=== PATIENT | male | born 2000 | race Caucasian/White ===

== ENCOUNTER 2020-03-24 13:57 | Emergency (ER) | payer OTHER, SELFPAY ==
[2020-03-24 14:22] VITALS: BP 146/79; PULSE 68; RESP 16; TEMP 36.6; O2SAT 100; BMI 39.4
--- NOTE | 2020-03-24 17:29 | ED_ITS ---
HPI - Abdominal Pain General Chief Complaint: Abdominal Pain Stated Complaint: stomach pain,headache,tired Time Seen by Provider: 03/24/20 17:29 Source: patient Mode of arrival: ambulatory Limitations: no limitations History of Present Illness HPI narrative: patient complaining of diffuse abdominal pain for last 1 month also complaining of headache and been feeling tired, patient denies any vomiting. Does complain of nausea and 2 or 3 loose bowels per day patient does not seem to be in any distress multiple complaints as such Related Data Previous Rx's Medication Instructions Recorded dicyclomine 20 mg PO QID PRN #20 tab 03/24/20 Allergies Allergy/AdvReac Type Severity Reaction Status Date / Time No Known Allergies Allergy Unverified 01/03/20 19:53 [No Known Allergies*] Review of Systems Review of Systems REVIEW OF SYSTEMS: Pertinent positives and negatives are stated above in the history. GEN: no fevers, chills, fatigue HEENT: no nasal congestion, sore throat, ear pain NEURO: no dizziness, focal weakness PULM: no cough, shortness of breath CV: no chest pain, palpitations, LE edema ABD: no ,, vomiting, : no dysuria, urgency, frequency SKIN: no rash ROS otherwise negative x 10 Physical Exam Vital Signs: Vital Signs: Last Vital Signs Temp 98.5 F 03/24/20 18:26 Pulse 60 03/24/20 18:26 Resp 18 03/24/20 18:26 BP 129/80 03/24/20 18:26 Pulse Ox 98 03/24/20 18:26 Body Mass Index 39.4 Appearance: Alert. Oriented X3. No acute distress. Eyes: Pupils equal, round and reactive to light. ENT: Pharynx normal. oral mucosa moist Neck: Normal inspection. Neck supple. CVS: Normal heart rate and rhythm. Pulses normal. Respiratory: No respiratory distress. Breath sounds normal. Abdomen: Soft and nontender. bowel sounds normal no mass palpable no rebound tenderness or guarding Skin: Skin warm and dry. Normal skin color. Normal skin turgor. Extremities: No lower extremity edema. Good range of movement Neuro: Oriented X 3. No motor deficit. No sensory deficit. MDM - Abdominal Pain Differential Diagnosis Differential diagnosis: Likely abdominal pain Lab Data Attestation: I reviewed the patient's lab results. Labs: Lab Results 03/24/20 Range/Units 17:41 Coronavirus (PCR) NEGATIVE (Negative) Influenza Type A (PCR) NEGATIVE (Negative) Influenza Type B (PCR) NEGATIVE (Negative) RSV RNA Qual (PCR) NEGATIVE (Negative) Discharge Plan Discharge Clinical Impression: Abdominal pain Qualifiers: Abdominal location: generalized Qualified Code(s): R10.84 - Generalized abdominal pain Patient Disposition: Home, Self-Care Instructions: Abdominal Pain (ED) Additional Instructions: drink plenty of fluids take medication for abdominal cramping as advised follow with PCP will call you with your COVID results Prescriptions: New dicyclomine 20 mg tablet 20 mg PO QID PRN (Reason: abdominal pain) Qty: 20 RF: 0 Interventions: ED Discharge Assessment Last Done: 03/24/20 18:40 Discharge Date/Time: 03/24/20 18:42 FORMERLY [facility] Past Medical History Medical History Asthma Social History Social History Alcohol intake: never Smoked in Last 30 Days: No Use of substances other than those prescribed or required for medical reasons: No Advance Directives: No Advance Directives Information Provided: No
[2020-03-24] MEDS: Dicyclomine HCl 10 MG CAPSULE 20 MG PO (17:39)
[2020-03-24 18:26] VITALS: BP 129/80; PULSE 60; RESP 18; TEMP 36.9; O2SAT 98
[2020-03-24 18:26] LABS: Influenza A PCR NEGATIVE (Negative); Influenza B PCR NEGATIVE (Negative); Resp Syncy Virus RNA Qual PCR NEGATIVE (Negative); SARS COV2 PCR INHOUSE NEGATIVE (Negative)
== END 2020-03-24 18:42 | disposition home or self-care (01) ==
PROVIDERS: Emergency Provider Internal Medicine
DX: R10.84 Generalized abdominal pain (principal); Z20.828 Contact with and (suspected) exposure to other viral communicable diseases; R51.9 Headache, unspecified; R53.83 Other fatigue
CPT/HCPCS: 0241U; 99283; 99284

== ENCOUNTER 2020-04-10 15:26 | Outpatient (REF) | payer OTHER, SELFPAY | END 2020-04-10 15:27 | disposition home or self-care (01) | LOC: HO.LAB 15:26 | PROVIDERS: Visit Provider Internal Medicine | DX: Z20.828 Contact with and (suspected) exposure to other viral communicable diseases (principal) | CPT/HCPCS: C9803; U0003 ==

== ENCOUNTER 2020-04-23 13:00 | Outpatient (REF) | payer OTHER, SELFPAY | END 2020-04-23 13:01 | disposition home or self-care (01) | LOC: HO.LAB 13:00 | PROVIDERS: PCP Internal Medicine; Visit Provider Internal Medicine | DX: Z20.828 Contact with and (suspected) exposure to other viral communicable diseases (principal) | CPT/HCPCS: 36415; C9803; U0003 ==

== ENCOUNTER 2020-08-09 10:44 | Emergency (ER) | payer OTHER, SELFPAY ==
--- NOTE | ~2020-08-09 | XR_ITS ---
EXAMINATION: XR CHEST CLINICAL INFORMATION: Shortness of breath/chest pain. COMPARISON: None TECHNIQUE: Frontal view of the chest was obtained. FINDINGS: No significant abnormality is noted involving the heart, lungs, mediastinum, bony thorax or soft tissues. XR/XR chest 1V IMPRESSION: No acute cardiopulmonary process.
[2020-08-09 11:02] VITALS: BP 135/83; PULSE 82; RESP 16; TEMP 36.7; O2SAT 97; BMI 38.7
--- NOTE | 2020-08-09 11:21 | PC.NURSE ---
patient a&ox3, vss, lungs clear, pt states his chest feels heavy from his asthma, pt states this occurs every spring and it is nothing new and at times he has to go to the ed for treatment when his at home meds dont work, provider at bedside, will continue to monitor.
--- NOTE | 2020-08-09 11:23 | ECG_ITS ---
Test Reason : SOB/CP Blood Pressure : / mmHG Vent. Rate : 072 BPM Atrial Rate : 072 BPM P-R Int : 158 ms QRS Dur : 092 ms QT Int : 360 ms P-R-T Axes : 059 072 044 degrees QTc Int : 394 ms Normal sinus rhythm with sinus arrhythmia Normal ECG No previous ECGs available Referred By: Patti Lockwood Electronically Signed By:RYLEE MARIE MD
--- NOTE | 2020-08-09 11:29 | ED_ITS ---
HPI - Asthma General Chief Complaint: Asthma Stated Complaint: ashtma Time Seen by Provider: 08/09/20 11:11 Source: patient Mode of arrival: ambulatory History of Present Illness HPI Narrative: 19-year-old male with a past medical history of asthma presenting to the ED complaining of asthma exacerbation x2 days. Reports chest tightness, wheezing, in pain on inspiration. Reports using inhalers at home with little relief. Admits to similar symptoms in the past, annually, exacerbated with fallen. Denies fever, chills, LE edema, recent travel, cigarette smoking, history of blood clots complaint: asthma attack and shortness of breath Related Data Previous Rx's Medication Instructions Recorded dicyclomine 20 mg PO QID PRN #20 tab 03/24/20 Allergies Allergy/AdvReac Type Severity Reaction Status Date / Time No Known Allergies Allergy Verified 08/09/20 11:08 [No Known Allergies*] Review of Systems Review of Systems: Constitutional: No Fever, No Chills Cardiovascular: + Chest tightness, + SOB, No Edema, No Palpitations Respiratory: + Cough, No Sputum, + Wheezing Gastrointestinal: No Nausea, No Vomiting, No Diarrhea, No Constipation, No Abdominal pain Musculoskeletal: No joint pain, No Myalgias, No Joint Swelling Skin: No Skin Lesions, No rash Neuro: No Weakness, No Numbness, No Headache Yes all other systems are reviewed and are negative FOR[facility]LY [facility] Past Medical History Attestation statement: The following information was validated with the patient. Medical History Asthma Social History Social History Alcohol intake: current Alcohol intake frequency: holidays/special occasions only Smoked in Last 30 Days: No Use of substances other than those prescribed or required for medical reasons: No Advance Directives: No Advance Directives Information Provided: No Physical Exam Vital Signs: Vital Signs: Last Vital Signs Temp 98.1 F 08/09/20 11:02 Pulse 78 08/09/20 12:17 Resp 16 08/09/20 11:02 BP 135/83 08/09/20 11:02 Pulse Ox 97 08/09/20 11:02 Body Mass Index 38.7 Const: General: cooperative and healthy appearing Orientation/consciousness: patient oriented x3 Limitations: no limitations HENMT: Head: Yes normal to inspection Ears: hearing grossly normal bilaterally General nose exam: Normal external nose present Face and sinus: Yes normal facial exam Eyes: General: appearance normal, both eyes and all related structures EOM: EOMs intact bilaterally Neck: Neck: Yes normal visual inspection and Yes no meningeal signs Resp: Effort & Inspection: normal respiratory effort Auscultation: clear to auscultation bilaterally, no rales, no rhonchi and no wheezes Cardio: Rate: regular rate Heart sounds: S1 normal heart sound present and S2 normal heart sound present Skin: Rashes: no rashes Wounds: no wounds Neuro: General: patient oriented x3 and no meningeal signs Gait exam (Neuro): Normal gait present Extrem: General: Yes normal to inspection, Yes no pedal edema and Yes no calf tenderness Course Course Course Narrative: -labs unremarkable including troponin and D-dimer negative -COVID-19/influenza/RSV negative -CXR unremarkable >> results discussed with patient including worrisome signs and symptoms and s trict return precautions. He verbalized understanding feel safe for discharge home to follow-up with PCP MDM - Asthma MDM Narrative Medical decision making narrative: 19-year-old male with a past medical history of asthma presenting to the ED complaining of asthma exacerbation x2 days. Reports chest tightness, wheezing, & pain on inspiration. On exam VSS, NAD/well appearing, lungs CTA, no LE edema or calf tenderness. Concern for mild asthma exacerbation vs PE vs viral syndrome/COVID-19. Lower concern for pneumonia/ACS Plan: EKG, labs, CXR, DuoNeb, reassess Medical Records Attestation: I reviewed the patient's medical records. Lab Data Attestation: I reviewed the patient's lab results. Result diagrams: 08/09/20 11:50 08/09/20 11:50 Labs: Lab Results 08/09/20 08/09/20 08/09/20 Range/Units 11:50 11:50 11:50 WBC 8.9 (4.8-10.8) X10*3/uL RBC 5.43 (4.60-5.80) X10*6/uL Hgb 15.6 (14.0-18.0) g/dl Hct 46.3 (42-52) % MCV 85.3 (80-98) fL MCH 28.7 (27.0-33.0) pg MCHC 33.7 (31.0-36.0) g/dl RDW 13.2 (11.0-16.0) % Plt Count 225 (160-400) X10*3/uL MPV 12.2 (9.4-12.4) fL Immature Gran % (Auto) 0.1 (0.0-0.4) % Neut % (Auto) 72.0 (45-73) % Lymph % (Auto) 18.5 L (20-40) % [place] % (Auto) 4.8 (2-11) % Eos % (Auto) 4.2 H (0-4) % Baso % (Auto) 0.4 (0-2) % Lymph # (Auto) 1.7 (1.2-4.9) X10*3/uL [place] # (Auto) 0.4 (0.1-1.2) X10*3/uL Eos # (Auto) 0.4 (0.0-0.4) X10*3/uL Baso # (Auto) 0.0 (0.0-0.2) X10*3/uL Abs Immat Gran (auto) 0.01 (0.00-0.03) X10*3/uL Absolute Neuts (auto) 6.4 (2.0-8.3) X10*3/uL Absolute Nucleated RBC 0.000 (0.0-0.012) X10*3/uL Nucleated RBC % (auto) 0.0 (0.0-0.2) /100WBC PT (10.8-13.0) SEC INR (0.9-1.1) APTT (24.1-38.0) SEC D-Dimer Cancelled Sodium 141 (135-145) mmol/L Potassium 4.4 (3.3-5.1) mmol/L Chloride 103 (96-108) mmol/L Carbon Dioxide 28 (22-29) mmol/L Anion Gap 14 (12-20) BUN 14 (9-16) mg/dL Creatinine 0.83 (0.5-1.4) mg/dL Estim Creat Clear Calc 168.2 Estimated GFR > 60 Random Glucose 91 (60-115) mg/dL Calcium 10.0 (8.4-10.2) mg/dL Magnesium 2.2 (1.6-2.6) mg/dL Troponin I High Sens (<3.5-35.0) ng/L Coronavirus (PCR) (Negative) Influenza Type A (PCR) (Negative) Influenza Type B (PCR) (Negative) RSV RNA Qual (PCR) (Negative) 08/09/20 08/09/20 08/09/20 Range/Units 11:50 11:50 11:50 WBC (4.8-10.8) X10*3/uL RBC (4.60-5.80) X10*6/uL Hgb (14.0-18.0) g/dl Hct (42-52) % MCV (80-98) fL MCH (27.0-33.0) pg MCHC (31.0-36.0) g/dl RDW (11.0-16.0) % Plt Count (160-400) X10*3/uL MPV (9.4-12.4) fL Immature Gran % (Auto) (0.0-0.4) % Neut % (Auto) (45-73) % Lymph % (Auto) (20-40) % [place] % (Auto) (2-11) % Eos % (Auto) (0-4) % Baso % (Auto) (0-2) % Lymph # (Auto) (1.2-4.9) X10*3/uL [place] # (Auto) (0.1-1.2) X10*3/uL Eos # (Auto) (0.0-0.4) X10*3/uL Baso # (Auto) (0.0-0.2) X10*3/uL Abs Immat Gran (auto) (0.00-0.03) X10*3/uL Absolute Neuts (auto) (2.0-8.3) X10*3/uL Absolute Nucleated RBC (0.0-0.012) X10*3/uL Nucleated RBC % (auto) (0.0-0.2) /100WBC PT 14.7 H (10.8-13.0) SEC INR 1.2 H (0.9-1.1) APTT 41.0 H (24.1-38.0) SEC D-Dimer < 200 Sodium (135-145) mmol/L Potassium (3.3-5.1) mmol/L Chloride (96-108) mmol/L Carbon Dioxide (22-29) mmol/L Anion Gap (12-20) BUN (9-16) mg/dL Creatinine (0.5-1.4) mg/dL Estim Creat Clear Calc Estimated GFR Random Glucose (60-115) mg/dL Calcium (8.4-10.2) mg/dL Magnesium (1.6-2.6) mg/dL Troponin I High Sens < 3.5 (<3.5-35.0) ng/L Coronavirus (PCR) NEGATIVE (Negative) Influenza Type A (PCR) NEGATIVE (Negative) Influenza Type B (PCR) NEGATIVE (Negative) RSV RNA Qual (PCR) NEGATIVE (Negative) ECG Data Attestation: I personally reviewed and interpreted this ECG as follows: ECG interpretation date: 08/09/20 ECG interpretation time: 11:50 Prior ECG tracings: available for review Interpretation: EKG normal sinus rhythm with sinus arrhythmia. Rate of 72. Lian schemic, no STEMI Discharge Plan Discharge Clinical Impression: Asthma with acute exacerbation Patient Disposition: Home, Self-Care Instructions: Asthma (ED) Additional Instructions: Continue using your albuterol inhalers at home Stay hydrated Follow-up with her primary care doctor If her symptoms persist or worsen, shortness with becomes more constant, he developed fever return to the ED Prescriptions: No Action dicyclomine 20 mg tablet 20 mg PO QID PRN (Reason: abdominal pain) Qty: 20 RF: 0 Referrals: Physician,Unknown [Primary Care Provider] - 5 days Stand Alone Forms: Work/School Release
--- NOTE | 2020-08-09 11:54 | PC.NURSE ---
rt called for kyle
[2020-08-09 11:55] LABS: MANUAL DIFF FLAG NO
--- NOTE | 2020-08-09 11:55 | PC.NURSE ---
iv inserted, labs drawn, ekg performed, covid swab performed, rt called for updraft, will continue to monitor
[2020-08-09 11:56] LABS: Basophils Percent Auto 0.4 % (0-2); Eosinophils Absolute Auto 0.4 X10*3/uL (0.0-0.4); Eosinophils Percent Auto 4.2 % (0-4); Hematocrit 46.3 % (42-52); Hemoglobin 15.6 g/dl (14.0-18.0); Imm Gran Abs Auto 0.01 X10*3/uL (0.00-0.03); Imm Gran Pct Auto 0.1 % (0.0-0.4); Lymphocytes Absolute Auto 1.7 X10*3/uL (1.2-4.9); Lymphocytes Percent Auto 18.5 % (20-40); Mean Corpuscular HGB Conc 33.7 g/dl (31.0-36.0); Mean Corpuscular Hemoglobin 28.7 pg (27.0-33.0); Mean Corpuscular Volume 85.3 fL (80-98); Mean Platelet Volume 12.2 fL (9.4-12.4); Monocytes Absolute Auto 0.4 X10*3/uL (0.1-1.2); Monocytes Percent Auto 4.8 % (2-11); Neutrophils Absolute Auto 6.4 X10*3/uL (2.0-8.3); Platelet Count 225 X10*3/uL (160-400); Red Blood Count 5.43 X10*6/uL (4.60-5.80); Red Cell Distribution Width 13.2 % (11.0-16.0); White Blood Count 8.9 X10*3/uL (4.8-10.8)
[2020-08-09] MEDS: Albuterol/Iprat 2.5/0.5MG 3 ML AMPUL.NEB INHALE (12:15)
[2020-08-09 12:17] VITALS: PULSE 78; O2SAT 96
[2020-08-09 12:19] LABS: INTERNATIONAL NORM RATIO 1.2 (0.9-1.1); Prothrombin Time 14.7 SEC (10.8-13.0)
[2020-08-09 12:25] LABS: D Dimer < 200 NG/ML
[2020-08-09 12:44] LABS: Anion Gap 14 (12-20); Blood Urea Nitrogen 14 mg/dL (9-16); Carbon Dioxide 28 mmol/L (22-29); Chloride 103 mmol/L (96-108); Creatinine Clr Calc Pharmacy 168.2; Estimated Glomerular Filt Rate > 60; Glucose Random 91 mg/dL (60-115); Magnesium 2.2 mg/dL (1.6-2.6); Potassium 4.4 mmol/L (3.3-5.1); Sodium 141 mmol/L (135-145)
[2020-08-09 12:50] LABS: Influenza A PCR NEGATIVE (Negative); Influenza B PCR NEGATIVE (Negative); Resp Syncy Virus RNA Qual PCR NEGATIVE (Negative); SARS COV2 PCR INHOUSE NEGATIVE (Negative)
[2020-08-09 12:51] LABS: Troponin-I High Sensitivity < 3.5 ng/L (<3.5-35.0)
--- NOTE | 2020-08-09 13:05 | PC.NURSE ---
pt vitals 98.2, p 83, rr 17, bp 131/78, 98% O2
== END 2020-08-09 13:20 | disposition home or self-care (01) ==
PROVIDERS: Physician Assistant; Emergency Provider Emergency Medicine
DX: J45.901 Unspecified asthma with (acute) exacerbation (principal); Z20.822 Contact with and (suspected) exposure to COVID-19
CPT/HCPCS: 0241U; 36415; 71045; 80048; 83735; 84484; 85025; 85379; 85610; 85730; 93005; 94640; 99284

== ENCOUNTER 2020-08-28 17:33 | Emergency (ER) | payer OTHER, SELFPAY ==
[2020-08-28 18:26] VITALS: BP 127/79; PULSE 106; RESP 20; TEMP 36.8; O2SAT 98; BMI 39.1
[2020-08-28 19:25] VITALS: PULSE 96; O2SAT 98
[2020-08-28 19:49] LABS: COVID-19 Test Negative (Negative)
--- NOTE | 2020-08-28 19:54 | ED_ITS ---
HPI - Asthma General Chief Complaint: Asthma Stated Complaint: asthma Time Seen by Provider: 08/28/20 19:54 Source: patient Mode of arrival: ambulatory Limitations: no limitations History of Present Illness HPI Narrative: Patient with asthma states he was better after steroids but now back to wheezing. states he has been sick with wheezing for 3 weeks complaint: asthma attack Onset (ago): week(s) Severity: moderate Associated symptoms: dry cough Related Data Previous Rx's Medication Instructions Recorded dicyclomine 20 mg PO QID PRN #20 tab 03/24/20 prednisone 60 mg PO DAILY #12 tab 08/28/20 Allergies Allergy/AdvReac Type Severity Reaction Status Date / Time No Known Allergies Allergy Verified 08/09/20 11:08 [No Known Allergies*] Review of Systems 2 Constitutional: Constitutional: Reports no additional constitutional complaints Eyes: Eyes: Reports no additional eye complaints ENT: Denies dizziness Cardiovascular: Cardiovascular: Reports no additional cardiovascular complaints Respiratory: Respiratory: Reports as per HPI Gastrointestinal: Gastrointestinal: Reports no additional gastrointestinal complaints Musculoskeletal: Musculoskeletal: Reports no additional musculoskeletal complaints Integumentary/Breasts: Skin/Breast: Denies rash Neurologic: Reports system reviewed and no additional complaints, except as documented, Denies dizziness and Denies Sensory deficit (Neuro) Psychiatric: Psychiatric: Denies anxiety [facility] Past Medical History Medical History Asthma Social History Social History Alcohol intake: current Alcohol intake frequency: holidays/special occasions only Advance Directives: No Advance Directives Information Provided: No Physical Exam Vital Signs: Vital Signs: Last Vital Signs Temp 98.3 F 08/28/20 18:26 Pulse 96 08/28/20 19:25 Resp 20 08/28/20 18:26 BP 127/79 08/28/20 18:26 Pulse Ox 98 08/28/20 19:25 Body Mass Index 39.1 Const: General: healthy appearing Nutritional Appearance: obese Orientation/consciousness: oriented to person and patient oriented x3 Limitations: no limitations HENMT: Head: Yes normal to inspection Ears: external ears normal General nose exam: Normal external nose present Mouth: Normal oral and palatal mucosa present and oropharynx normal Throat: Yes posterior oropharynx normal Eyes: General: appearance normal, both eyes and all related structures Neck: Other: supple Neck: Yes normal visual inspection Chest: Chest palpation & inspection: normal inspection of the chest Resp: Other: slight wheezing Cardio: Jugular venous distension: no JVD Rate: regular rate Rhythm: regular rhythm Heart sounds: S1 normal heart sound present and S2 normal heart sound present GI: Inspection: Yes normal to inspection Palpation (GI): Soft to palpation, nontender and No hepatosplenomegaly present Auscultation: normal bowel sounds : General: Yes no CVA tenderness Back/Spine/Pelvis: Back: no CVA tenderness Skin: General skin exam: no rashes or lesions noted Neuro: General: oriented to person and patient oriented x3 Cranial nerves: Yes CN's II-XII intact bilaterally Motor exam (neuro): 5/5 motor strength present throughout Sensory Exam: No Sensory deficit (Neuro) Extrem: General: Yes normal to inspection Psych: Appearance: grossly normal Course Course Course Narrative: patient with mile wheezing will give MDI treatment and start prednisone, Patient is COVID negative MDM - Asthma Lab Data Labs: Lab Results 08/28/20 Range/Units 19:24 COVID-19 (MARIE) Negative (Negative) COVID-19 Clin Com See Note Discharge Plan Discharge Clinical Impression: Asthma with acute exacerbation Qualifiers: Asthma severity: mild Asthma persistence: persistent Qualified Code(s): J45.31 - Mild persistent asthma with (acute) exacerbation Patient Disposition: Home, Self-Care Instructions: Asthma (ED) Prescriptions: New prednisone 20 mg tablet 60 mg PO DAILY Qty: 12 RF: 0 No Action dicyclomine 20 mg tablet 20 mg PO QID PRN (Reason: abdominal pain) Qty: 20 RF: 0 Referrals: Amos Ariza MD [Primary Care Provider] - 2 days
[2020-08-28] MEDS: predniSONE 20 MG TABLET 60 MG PO (20:20)
[2020-08-28] MEDS: Albuterol Sulfate 90 MCG 8 GM INHALER 4 PUFF INHALE (20:20)
== END 2020-08-28 20:30 | disposition home or self-care (01) ==
PROVIDERS: Emergency Provider Emergency Medicine; PCP Internal Medicine
DX: J45.31 Mild persistent asthma with (acute) exacerbation (principal); Z20.822 Contact with and (suspected) exposure to COVID-19
CPT/HCPCS: 36415; 87635; 99283; 99284

== ENCOUNTER 2021-03-11 14:05 | Emergency (ER) | payer OTHER, SELFPAY ==
--- NOTE | ~2021-03-11 | CT_ITS ---
EXAMINATION: CT ABDOMEN AND PELVIS WITHOUT CONTRAST CLINICAL INFORMATION: Umbilical/left lower quadrant abdominal pain. COMPARISON: None TECHNIQUE: Multidetector volumetric imaging was performed from the superior aspect of the liver through the pubic symphysis. Sagittal and coronal reformatted images were obtained on the technologist's workstation. This CT examination was performed using dose optimization techniques as appropriate, variously including the following: *Automated exposure control *Adjustment of mA and/or kV according to patient size (this includes techniques or standardized protocols for targeted exams where dose is matched to indication/reason for exam; i.e. extremities or head) *Use of iterative reconstruction technique DLP: 803 mGy-cm FINDINGS: LUNG BASES: The visualized lung bases are unremarkable. LIVER, GALLBLADDER, AND BILIARY TREE: The liver is normal in size, shape, and attenuation. No focal hepatic lesion or biliary ductal dilatation is present. The gallbladder is unremarkable with no evidence of radiopaque gallstones, gallbladder wall thickening, or obvious pericholecystic inflammatory changes. PANCREAS: Unremarkable. SPLEEN: The spleen is unremarkable. There is a small accessory splenial just above the hilum. ADRENAL GLANDS: Unremarkable. KIDNEYS AND URETERS: The kidneys are normal in size, shape, and attenuation. No hydronephrosis, hydroureter, or calculi seen. No perinephric stranding. BLADDER: Unremarkable. GASTROINTESTINAL TRACT: There is scattered and gas seen in colon without distention. Appendix is normal caliber. ABDOMINAL WALL: A very small umbilical hernia containing fat is noted. LYMPH NODES: Normal. VASCULAR: Unremarkable. PELVIC VISCERA: Unremarkable. OSSEOUS STRUCTURES: Unremarkable. CT/CT abdomen pelvis wo con IMPRESSION: No acute intra-abdominal process seen. Fleischner guidelines were followed.
[2021-03-11 14:15] VITALS: BP 143/81; PULSE 60; RESP 18; TEMP 36.7; O2SAT 99; BMI 36.0
[2021-03-11 14:40] LABS: MANUAL DIFF FLAG NO
[2021-03-11 14:44] LABS: Basophils Percent Auto 0.4 % (0-2); Eosinophils Absolute Auto 0.1 X10*3/uL (0.0-0.4); Hematocrit 45.7 % (42.0-52.0); Hemoglobin 15.3 g/dl (14.0-18.0); Imm Gran Abs Auto 0.01 X10*3/uL (0.00-0.03); Imm Gran Pct Auto 0.1 % (0.0-0.4); Lymphocytes Absolute Auto 1.7 X10*3/uL (1.2-4.9); Lymphocytes Percent Auto 24.6 % (20-40); Mean Corpuscular HGB Conc 33.5 g/dl (31.0-36.0); Mean Corpuscular Hemoglobin 29.4 pg (27.0-33.0); Mean Corpuscular Volume 87.9 fL (80.0-98.0); Mean Platelet Volume 12.4 fL (9.4-12.4); Monocytes Absolute Auto 0.5 X10*3/uL (0.1-1.2); Monocytes Percent Auto 6.7 % (2-11); Neutrophils Absolute Auto 4.7 x10*3/uL (2.0-8.3); Neutrophils Percent Auto 66.2 % (45-73); Platelet Count 198 X10*3/uL (160-400); Red Cell Distribution Width 13.2 % (11.0-16.0)
[2021-03-11 15:11] LABS: Alanine Aminotransferase 19 U/L (0-40); Albumin Level 4.5 g/dL (3.5-5.0); Alkaline Phosphatase 78 U/L (39-117); Anion Gap 11 (12-20); Aspartate Amino Transferase 19 U/L (5-37); Bilirubin Direct 0.4 mg/dL (0.0-0.5); Bilirubin Total 1.1 mg/dL (0.0-1.0); Blood Urea Nitrogen 13 mg/dL (9-16); Calcium 9.5 mg/dL (8.4-10.2); Carbon Dioxide 28 mmol/L (22-29); Chloride 107 mmol/L (96-108); Creatinine Clr Calc Pharmacy 146.5; Estimated Glomerular Filt Rate > 60; Glucose Random 77 mg/dL (60-115); Lipase 35 U/L (8-78); Potassium 4.2 mmol/L (3.3-5.1); Sodium 142 mmol/L (135-145); Total Protein 7.3 g/dL (6.5-8.0)
--- NOTE | 2021-03-11 15:25 | ED.ABDPAIN ---
HPI - Abdominal Pain General Chief Complaint: Abdominal Pain Stated Complaint: abd pain x 3months Time Seen by Provider: 03/11/21 14:33 Source: patient Mode of arrival: ambulatory Limitations: no limitations History of Present Illness HPI narrative: 20-year-old male presenting to the ED with complaints of periumbilical abdominal pain that intermittently radiates to his left lower quadrant that has been constant almost every day for the past 4 months worse with eating foods. Reports that he intermittently develops nausea. Denies any fevers, chills, chest pain, shortness of breath, back pain, dysuria, hematuria, abnormal penile discharge, rashes, to the abdomen, recent travel or sick contacts or any other symptoms complaints or concerns at this time. Denies any surgical history to the abdomen. MD elicited complaint: abdominal pain Pertinent past history: none Onset (ago): month(s) (Four months) Pain Consistency: constant Location: periumbilical Severity: mild Quality: aching Radiation: LLQ Exacerbating factors: eating Relieving factors: nothing Associated symptoms: nausea Related Data Previous Rx's Medication Instructions Recorded dicyclomine 20 mg tablet 20 mg PO QID PRN #20 tab 03/24/20 prednisone 20 mg tablet 60 mg PO DAILY #12 tab 08/28/20 omeprazole 20 mg capsule,delayed 20 mg PO DAILY #14 cap 03/11/21 release ondansetron HCl 4 mg tablet 4 mg PO Q8H PRN #14 tab 03/11/21 (Zofran) Allergies Allergy/AdvReac Type Severity Reaction Status Date / Time No Known Allergies Allergy Verified 08/09/20 11:08 [No Known Allergies*] Review of Systems Review of Systems Constitutional : No Weight loss, No Fever, No Chills, No Night Sweats, No Fatigue, NoMalaise ENT/Mouth: No ear pain, No sore throat, No Difficulty swallowing Cardiovascular : No Chest Pain, No SOB, No Dyspnea on Exertion, No Orthopnea, NoEdema, No Palpitations Respiratory : No Cough, No Sputum, No Wheezing, No Dyspnea Gastrointestinal : + Nausea, No Vomiting, + abdominal pain, No Diarrhea, No blood streaked emesis, No coffee-ground emesis, No gross hematemesis, No blood streak stool, No gross hematochezia, No Melena Genitourinary : No irregular bleeding, No Dysuria, No Urinary Frequency, No Hematuria,No Urinary Incontinence, No Urgency, No Flank Pain Musculoskeletal : No joint pain, No Myalgias, No Joint Swelling Skin : No Skin Lesions, No rash Neuro : No Weakness, No Numbness, No Paresthesias, No Loss of Consciousness, NoDizziness, No Headache Psych : No Social Issues, Heme/Lymph: No Bruising, No Bleeding,No Lymphadenopathy Endocrine : No Polyuria, No Polydipsia, No Temperature Intolerance Yes all other systems are reviewed and are negative Physical Exam Vital Signs: Vital Signs: Last Vital Signs Temp 98.1 F 03/11/21 14:15 Pulse 60 03/11/21 14:15 Resp 18 03/11/21 14:15 BP 143/81 H 03/11/21 14:15 Pulse Ox 99 03/11/21 14:15 Body Mass Index 36.0 vital signs have been reviewed as normal and appeared to be correct. Blood pressure 143/81 Heart rate normal. Respiration rate normal. Temperature normal. Oxygen saturation normal. Appearance: Alert. Oriented X3. No acute distress. Head: Normal external exam. Normocephalic. Eyes: PERRLA. EOMI. Conjunctiva and sclera normal. Eyelids normal. ENT: Pharynx normal. Uvula midline. Moist mucous membranes. Neck: Normal inspection. Neck supple. FROM. No adenopathy. No meningeal signs. CVS: Normal heart rate and rhythm. Heart sound normal. No murmurs noted. Pulses normal throughout. Respiratory: No respiratory distress. Painless inspiration. Breath sounds normal. No wheezes/rales/rhonchi noted. Chest nontender. No accessory muscle usage noted or decreased air movement noted. Abdomen: Soft and mild tenderness to palpation to umbilical/left lower quadrant. Nondistended. No guarding. No rigidity. Bowel sounds normal in all 4 quadrants. No distention noted. No organomegaly noted. No visible injury noted. No rebound tenderness. Negative Rovsing sign. Negative obturator's sign. Negative psoas sign. Negative Lyon sign. Back: No CVA tenderness. Full range of motion noted. Skin: Skin warm and dry. Normal skin color. Normal skin turgor. No rashes/lesions/lacerations noted. Extremities: Extremities exhibit normal range of motion. Extremities nontender. Neuro: Oriented X 3. No motor deficit. No sensory deficit. Reflexes normal. Normal steady gait. Course Course Course Narrative: 14:20pm - 20-year-old male presenting to the ED with complaints of periumbilical abdominal pain that intermittently radiates to his left lower quadrant that has been constant almost every day for the past 4 months worse with eating foods. Reports that he intermittently develops nausea. Plan: Labs obtained in triage in total bilirubin 1.1 otherwise all other labs are within normal limits. Therefore at this time will obtain a CT scan abdomen pelvis without IV contrast and re-evaluate. Reevaluation(s) Reevaluation #1: - CT scan abdomen pelvis negative for any acute processes patient has an umbilical hernia that was noted in the report therefore he could be having intermittent pain from the umbilical hernia I explained to him that I can give him a referral to general surgeon. He also reports he has a history of GERD and I reported that this could also be causing his symptoms I will send him home with omeprazole. Along with Zofran instructions return if any new or worsening symptoms to follow up with primary care provider. Patient understands agrees with this plan. Time: 16:13 [facility] - Abdominal Pain Medical Records Attestation: I reviewed the patient's medical records. Lab Data Attestation: I reviewed the patient's lab results. Result diagrams: 03/11/21 14:31 03/11/21 14:31 Labs: Lab Results 03/11/21 03/11/21 Range/Units 14:31 14:31 WBC 7.0 (4.8-10.8) X10*3/uL RBC 5.20 (4.60-5.80) X10*6/uL Hgb 15.3 (14.0-18.0) g/dl Hct 45.7 (42.0-52.0) % MCV 87.9 (80.0-98.0) fL MCH 29.4 (27.0-33.0) pg MCHC 33.5 (31.0-36.0) g/dl RDW 13.2 (11.0-16.0) % Plt Count 198 (160-400) X10*3/uL MPV 12.4 (9.4-12.4) fL Immature Gran % (Auto) 0.1 (0.0-0.4) % Neut % (Auto) 66.2 (45-73) % Lymph % (Auto) 24.6 (20-40) % Douglas % (Auto) 6.7 (2-11) % Eos % (Auto) 2.0 (0-4) % Baso % (Auto) 0.4 (0-2) % Lymph # (Auto) 1.7 (1.2-4.9) X10*3/uL Douglas # (Auto) 0.5 (0.1-1.2) X10*3/uL Eos # (Auto) 0.1 (0.0-0.4) X10*3/uL Baso # (Auto) 0.0 (0.0-0.2) X10*3/uL Abs Immat Gran (auto) 0.01 (0.00-0.03) X10*3/uL Absolute Neuts (auto) 4.7 (2.0-8.3) x10*3/uL Absolute Nucleated RBC 0.000 (0.0-0.012) X10*3/uL Nucleated RBC % (auto) 0.0 (0.0-0.2) /100WBC Sodium 142 (135-145) mmol/L Potassium 4.2 (3.3-5.1) mmol/L Chloride 107 (96-108) mmol/L Carbon Dioxide 28 (22-29) mmol/L Anion Gap 11 L (12-20) BUN 13 (9-16) mg/dL Creatinine 0.91 (0.5-1.4) mg/dL Estim Creat Clear Calc 146.5 Estimated GFR > 60 Random Glucose 77 (60-115) mg/dL Calcium 9.5 (8.4-10.2) mg/dL Total Bilirubin 1.1 H (0.0-1.0) mg/dL Direct Bilirubin 0.4 (0.0-0.5) mg/dL AST 19 (5-37) U/L ALT 19 (0-40) U/L Alkaline Phosphatase 78 (39-117) U/L Total Protein 7.3 (6.5-8.0) g/dL Albumin 4.5 (3.5-5.0) g/dL Lipase 35 (8-78) U/L Imaging Data CT scan abdomen pelvis without IV contrast: Attestation: I personally reviewed and interpreted this imaging study as follows: Radiologist's impression: FINDINGS: LUNG BASES: The visualized lung bases are unremarkable.? LIVER, GALLBLADDER, AND BILIARY TREE: The liver is normal in size, shape, and attenuation. No focal hepatic lesion or biliary ductal dilatation is present. The gallbladder is unremarkable with no evidence of radiopaque gallstones, gallbladder wall thickening, or obvious pericholecystic inflammatory changes.? PANCREAS: Unremarkable.? SPLEEN: The spleen is unremarkable. There is a small accessory splenial just above the hilum.? ADRENAL GLANDS: Unremarkable.? KIDNEYS AND URETERS: The kidneys are normal in size, shape, and attenuation. No hydronephrosis, hydroureter, or calculi seen. No perinephric stranding. ? BLADDER: Unremarkable.? GASTROINTESTINAL TRACT: There is scattered and gas seen in colon without distention. Appendix is normal caliber.? ABDOMINAL WALL: A very small umbilical hernia containing fat is noted. LYMPH NODES: Normal. VASCULAR: Unremarkable. PELVIC VISCERA: Unremarkable.? OSSEOUS STRUCTURES: Unremarkable.? CT/CT abdomen pelvis wo con IMPRESSION: No acute intra-abdominal process seen.? ? Fleischner guidelines were followed. Discharge Plan Discharge Clinical Impression: Abdominal pain, Hernia, umbilical, GERD (gastroesophageal reflux disease) Patient Disposition: Home, Self-Care Instructions: Umbilical Hernia (ED), Gastroesophageal Reflux Disease (ED), Abdominal Pain (ED) Prescriptions: New omeprazole 20 mg capsule,delayed release(DR/EC) 20 mg PO DAILY Qty: 14 RF: 0 ondansetron HCl [Zofran] 4 mg tablet 4 mg PO Q8H PRN (Reason: nausea and vomiting) Qty: 14 RF: 0 No Action dicyclomine 20 mg tablet 20 mg PO QID PRN (Reason: abdominal pain) Qty: 20 RF: 0 prednisone 20 mg tablet 60 mg PO DAILY Qty: 12 RF: 0 Referrals: Amos Ariza MD [Primary Care Provider] - 2 days Gregory Villa MD [Physician] - 2 days Print Language: Greek [facility] Past Medical History Attestation statement: The following information was validated with the patient. Medical History Asthma Social History Social History Alcohol intake: current Alcohol intake frequency: holidays/special occasions only Advance Directives: No Advance Directives Information Provided: Yes
== END 2021-03-11 16:42 | disposition home or self-care (01) ==
PROVIDERS: Emergency Provider Emergency Medicine; PCP Internal Medicine
DX: K42.9 Umbilical hernia without obstruction or gangrene (principal); K21.9 Gastro-esophageal reflux disease without esophagitis; R10.32 Left lower quadrant pain; Z79.899 Other long term (current) drug therapy
CPT/HCPCS: 36415; 74176; 80048; 80076; 83690; 85025; 99283; 99284

== ENCOUNTER 2021-11-17 21:00 | Emergency (ER) | payer OTHER, SELFPAY ==
[2021-11-17 21:23] VITALS: BP 169/94; PULSE 89; RESP 18; TEMP 36.6; O2SAT 99; BMI 33.5
--- NOTE | 2021-11-17 22:45 | ED_ITS ---
HPI - GI Bleed General Chief complaint: Abdominal Pain Stated complaint: blood in stools Time Seen by Provider: 11/17/21 22:45 Source: patient Mode of arrival: ambulatory Limitations: no limitations History of Present Illness HPI Narrative: Patient complaining of bright red rectal bleeding since a.m. today when wiped no blood clots does complain of mild lower abdominal pain for last few days no history of hemorrhoids no fever no chills Related Data Previous Rx's Medication Instructions Recorded dicyclomine 20 mg tablet 20 mg PO QID PRN abdominal pain 03/24/20 #20 tabs prednisone 20 mg tablet 60 mg PO DAILY #12 tabs 08/28/20 omeprazole 20 mg capsule,delayed 20 mg PO DAILY gerd #14 caps 03/11/21 release ondansetron HCl 4 mg tablet 4 mg PO Q8H PRN nausea and 03/11/21 (Zofran) vomiting #14 tabs hydrocortisone acetate 25 mg 25 mg [place] BID #12 ea 11/17/21 rectal suppository (Anusol-HC) polyethylene glycol 3350 17 17 g PO DAILY #510 grams 11/17/21 gram/dose oral powder (Miralax) Allergies Allergy/AdvReac Type Severity Reaction Status Date / Time No Known Allergies Allergy Verified 11/17/21 21:23 [No Known Allergies*] Review of Systems Review of Systems: Yes all other systems are reviewed and are negative [facility] Past Medical History Medical History Asthma Social History Social History Alcohol intake: current Alcohol intake frequency: holidays/special occasions only Patient Tobacco Use Status: Never used Tobacco Use of substances other than those prescribed or required for medical reasons: No Advance Directives: No Advance Directives Information Provided: No Physical Exam Vital Signs: Vital Signs: Last Vital Signs Temp 98.1 F 11/17/21 22:46 Pulse 63 11/17/21 22:46 Resp 16 11/17/21 22:46 BP 154/97 H 11/17/21 22:46 Pulse Ox 98 11/17/21 22:46 O2 Del Method 11/17/21 22:46 BMI result Body Mass Index 33.5 Appearance: Alert. Oriented X3. No acute distress. Eyes: PERRLA, No Nystagmus ENT: Pharynx normal. Oral Mucosa moist Neck: Normal inspection. Neck supple. CVS: Normal heart rate and rhythm. Pulses normal. Respiratory: No respiratory distress. Equal air entry bilateral, no wheezing/rales/rhonchi Abdomen: Soft and nontender. No rebound tenderness or guarding mild discomfort left lower quadrant Bowel sounds are present, no mass palpable, no CVA tenderness rectal; no stool palpable internal hemorrhoids+ no active bleeding Skin: Skin warm and dry. Normal skin color. Normal skin turgor. Extremities: No lower extremity edema. No calf tenderness Neuro: Oriented X 3. No motor deficit. MDM - GI Bleed MDM Narrative Medical decision making narrative: Patient bleeding likely from internal hemorrhoids patient advised to follow with PCP to report to the ER if worsening bleeding or abdominal pain Discharge Plan Discharge Clinical Impression: Bleeding hemorrhoid Patient Disposition: Home, Self-Care Instructions: Hemorrhoids (ED) Additional Instructions: Avoid constipation Stool softer as advised Anusol HC suppository twice daily Prescriptions: New hydrocortisone acetate [Anusol-HC] 25 mg suppository 25 mg [place] BID Qty: 12 0RF polyethylene glycol 3350 [Miralax] 17 gram/dose powder 17 g PO DAILY Qty: 510 0RF No Action dicyclomine 20 mg tablet 20 mg PO QID PRN (Reason: abdominal pain) Qty: 20 0RF prednisone 20 mg tablet 60 mg PO DAILY Qty: 12 0RF omeprazole 20 mg capsule,delayed release(DR/EC) 20 mg PO DAILY Qty: 14 0RF ondansetron HCl [Zofran] 4 mg tablet 4 mg PO Q8H PRN (Reason: nausea and vomiting) Qty: 14 0RF Interventions: ED Discharge Assessment Last Done: 11/17/21 23:05 Discharge Date/Time: 11/17/21 23:05
[2021-11-17 22:46] VITALS: BP 154/97; PULSE 63; RESP 16; TEMP 36.7; O2SAT 98
== END 2021-11-17 23:05 | disposition home or self-care (01) ==
PROVIDERS: Emergency Provider Internal Medicine; PCP Internal Medicine Infectious Disease
DX: K64.8 Other hemorrhoids (principal); R10.30 Lower abdominal pain, unspecified
CPT/HCPCS: 99283; 99284

== ENCOUNTER 2022-03-01 20:31 | Emergency (ER) | payer OTHER, SELFPAY ==
[2022-03-01 21:14] VITALS: BP 130/68; PULSE 98; RESP 18; TEMP 36.7; O2SAT 98; BMI 32.1
[2022-03-01 21:57] LABS: Appearance Urine Clear; Color Urine Yellow; Glucose Urine UA Negative (Negative); Leukocyte Esterase Urine Negative (Negative); Nitrite Urine Negative (Negative); Specific Gravity - Urine 1.015 (1.005-1.025); Urine Blood Negative (Negative); Urine Ketones Negative (Negative); Urine Protein Negative (Neg-Trace)
[2022-03-01] MEDS: cefTRIAXone sodium 500 MG, Lidocaine HCl 1 % MPF 1 ML IM (22:58)
--- NOTE | 2022-03-01 23:18 | ED.GENADULT ---
HPI - General Adult General Chief complaint: Back Pain/Injury Stated complaint: back and leg pain Time Seen by Provider: 03/01/22 21:52 Source: patient Mode of arrival: ambulatory Limitations: no limitations History of Present Illness HPI narrative: 21 yold male presents to the ED left buttock pain radiating down leg and causing suprapubic pain. patient deneis any dysuria, hematuria, fever, chills, flank pain, abdominal pain, nausea, emesis, recent trauama, recent unprotected sexual activity, dysuria, or hemturia. patient denies any urinary/bowel incontinenece. Related Data Previous Rx's Medication Instructions Recorded dicyclomine 20 mg tablet 20 mg PO QID PRN abdominal pain 03/24/20 #20 tabs prednisone 20 mg tablet 60 mg PO DAILY #12 tabs 08/28/20 omeprazole 20 mg capsule,delayed 20 mg PO DAILY gerd #14 caps 03/11/21 release ondansetron HCl 4 mg tablet 4 mg PO Q8H PRN nausea and 03/11/21 (Zofran) vomiting #14 tabs hydrocortisone acetate 25 mg 25 mg [place] BID #12 ea 11/17/21 rectal suppository (Anusol-HC) polyethylene glycol 3350 17 17 g PO DAILY #510 grams 11/17/21 gram/dose oral powder (Miralax) naproxen 500 mg tablet 500 mg PO BID PRN pain 7 days #14 03/01/22 tabs prednisone 20 mg tablet 40 mg PO DAILY 5 days #10 tabs 03/01/22 Allergies Allergy/AdvReac Type Severity Reaction Status Date / Time No Known Allergies Allergy Verified 11/17/21 21:23 [No Known Allergies*] [facility] Past Medical History Medical History Asthma Social History Social History Alcohol intake: current Alcohol intake frequency: holidays/special occasions only Patient Tobacco Use Status: Never used Tobacco Advance Directives: No Advance Directives Information Provided: Yes Physical Exam ED Vital Signs: Vital Signs - 24 hr 03/01/22 21:14 Temperature 98.1 F Pulse Rate 98 Respiratory Rate 18 Blood Pressure 130/68 Pulse Oximetry 98 Oxygen Delivery Method Room Air BMI result Body Mass Index 32.1 Const General: cooperative, healthy appearing, comfortable, no acute distress, well developed, alert, awake and Physically active Orientation/consciousness: oriented to person, oriented to place, oriented to time and patient oriented x3 HENMT Head: Yes normal to inspection, Yes No palpable skull fracture present, Yes normocephalic, Yes atraumatic and No abrasion Eyes General: appearance normal, both eyes and all related structures Neck Neck: Yes normal visual inspection, Yes full ROM, Yes no lymphadenopathy, Yes no meningeal signs, Yes trachea midline, Yes supple, No anterior neck swelling and No tender Chest Chest palpation & inspection: normal inspection of the chest and normal palpation of entire chest wall Resp Effort & Inspection: normal respiratory effort and able to speak in complete sentences Auscultation: clear to auscultation bilaterally Cardio Jugular venous distension: no JVD Heart sounds: S1 normal heart sound present and S2 normal heart sound present GI Inspection: Yes normal to inspection and No abdominal wall ecchymosis Palpation (GI): Soft to palpation, not firm, nontender, no guarding and not rigid General: No CVA tenderness and Yes no CVA tenderness Male General Exam: Yes normal external exam Penis: normal penis Meatus: meatus normal Scrotum: scrotum normal Testes: Testes normal Back/Spine/Pelvis Back: no CVA tenderness, No CVA tenderness and No back tenderness Back/spine/pelvis image: 1. positive for tenderness on palpation and range of motion. negative for erythema, ecchymosis, mass, or rash Skin General skin exam: no rashes or lesions noted and elasticity normal Neuro General: oriented to person, oriented to place, oriented to time, patient oriented x3, gait normal, tone normal, moves all extremities and no meningeal signs Cranial nerves: Yes CN's II-XII intact bilaterally Extrem General: Yes normal to inspection and Yes full ROM Psych Appearance: grossly normal, well kempt and not disheveled Course Course Course Narrative: UA and CTng ordered. no xray needed. Reevaluation(s) Reevaluation #1: patient agreed to emperical STI treatment. discharged with pain med for sciatica. uA normal Time: 23:24 Medications Administered Discontinued Medications Generic Name Dose Route Start Last Admin Trade Name Freq PRN Reason Stop Dose Admin Ceftriaxone Sodium 500 mg/ 0 mg 03/01/22 22:48 03/01/22 22:58 Lidocaine HCl 1 ml IM 03/01/22 22:49 1 kit ONCE ONE Administration Medical Decision Making MDM Narrative Medical decision making narrative: sciatica Lab Data Labs: Lab Results 03/01/22 Range/Units 21:47 Urine Color Yellow Urine Appearance Clear Urine pH 7.0 (5.0-9.0) Ur Specific [place] 1.015 (1.005-1.025) Urine Protein Negative (Neg-Trace) mg/dL Urine Glucose (UA) Negative (Negative) mg/dL Urine Ketones Negative (Negative) mg/dL Urine Blood Negative (Negative) Urine Nitrite Negative (Negative) Ur Leukocyte Esterase Negative (Negative) Discharge Plan Discharge Clinical Impression: Sciatica Patient Disposition: Home, Self-Care Instructions: Sciatica (ED), Back Pain (ED) Additional Instructions: Return to the ED immediatley for dysuria, hematuria, abdominal pain, fever, chills, urinary/bowel incontinenece, testicualr pain, back pain, fever, chills, penile discharge, penile lesions, or any other concerning syptoms. Pleae follow up with PCP. Prescriptions: New naproxen 500 mg tablet 500 mg PO BID PRN (Reason: pain) 7 Days Qty: 14 0RF prednisone 20 mg tablet 40 mg PO DAILY 5 Days Qty: 10 0RF No Action dicyclomine 20 mg tablet 20 mg PO QID PRN (Reason: abdominal pain) Qty: 20 0RF prednisone 20 mg tablet 60 mg PO DAILY Qty: 12 0RF omeprazole 20 mg capsule,delayed release(DR/EC) 20 mg PO DAILY Qty: 14 0RF ondansetron HCl [Zofran] 4 mg tablet 4 mg PO Q8H PRN (Reason: nausea and vomiting) Qty: 14 0RF hydrocortisone acetate [Anusol-HC] 25 mg suppository 25 mg [place] BID Qty: 12 0RF polyethylene glycol 3350 [Miralax] 17 gram/dose powder 17 g PO DAILY Qty: 510 0RF Stand Alone Forms: Work/School Release Interventions: ED Discharge Assessment Last Done: 03/01/22 23:40 Discharge Date/Time: 03/01/22 23:41 Print Language: Divehi
[2022-03-02 03:45] LABS: CT PCR NOT DETECTED (Not Detect.); NG PCR NOT DETECTED (Not Detect.)
== END 2022-03-01 23:41 | disposition home or self-care (01) ==
PROVIDERS: Emergency Provider Internal Medicine
DX: M54.41 Lumbago with sciatica, right side (principal); J45.909 Unspecified asthma, uncomplicated; Z79.899 Other long term (current) drug therapy
CPT/HCPCS: 81003; 87491; 87591; 96372; 99282; 99284; J0696

== ENCOUNTER 2023-04-26 16:05 | Emergency (ER) | payer SELFPAY ==
[2023-04-26 16:16] VITALS: BP 144/76; PULSE 90; RESP 18; TEMP 37.4; O2SAT 98; BMI 42.7
--- NOTE | 2023-04-26 16:22 | ED_ITS ---
HPI - General Adult General Chief complaint: Upper Respiratory Symptoms Stated complaint: body pain/coughing flu like symptoms Time Seen by Provider: 04/26/23 18:31 Source: patient Mode of arrival: ambulatory Limitations: no limitations History of Present Illness HPI narrative: 22 yold male with pmh of asthma presents to the ED for URI symptoms such as bodyaches, headache, coughing, congesion, and subjective fever. Related Data Previous Rx's Medication Instructions Recorded dicyclomine 20 mg tablet 20 mg PO QID PRN abdominal pain 03/24/20 #20 tabs prednisone 20 mg tablet 60 mg (3 x 20 mg) PO DAILY #12 tabs 08/28/20 omeprazole 20 mg capsule,delayed 20 mg PO DAILY gerd #14 caps 03/11/21 release ondansetron HCl 4 mg tablet 4 mg PO Q8H PRN nausea and 03/11/21 (Zofran) vomiting #14 tabs hydrocortisone acetate 25 mg 25 mg ID BID #12 ea 11/17/21 rectal suppository (Anusol-HC) polyethylene glycol 3350 17 17 g PO DAILY #510 grams 11/17/21 gram/dose oral powder (Miralax) naproxen 500 mg tablet 500 mg PO BID PRN pain 7 days #14 03/01/22 tabs prednisone 20 mg tablet 40 mg (2 x 20 mg) PO DAILY 5 days 03/01/22 #10 tabs albuterol sulfate 90 mcg/actuation 2 puff inhalation Q4-6H PRN 04/26/23 aerosol inhaler shortness of breath or wheezing #8.5 grams Allergies Allergy/AdvReac Type Severity Reaction Status Date / Time No Known Allergies Allergy Verified 11/17/21 21:23 [No Known Allergies*] Review of Systems Review of Systems: coughing, bodyaches, headache, coughing, congestion Yes all other systems are reviewed and are negative PMFSH Past Medical History Onset Date is defined in the Problem List Problems that require an onset date and time if occurred within 24 hrs of arrival to the ED Aortic Dissection and Rupture; Neurologic impairment; Cardiopulmonary Arrest; Endotracheal Intubation; Insertion or Replacement of Mechanical Circulatory Assist Device Medical History Asthma Social History Social History Alcohol intake: current Alcohol intake frequency: holidays/special occasions only Patient Tobacco Use Status: Never used Tobacco Advance Directives: No Advance Directives Information Provided: No Physical Exam ED Vital Signs: Vital Signs - 24 hr 04/26/23 16:16 Temperature 99.3 F Pulse Rate 90 Respiratory Rate 18 Blood Pressure 144/76 H Pulse Oximetry 98 Oxygen Delivery Method Room Air BMI result Body Mass Index 42.7 Const General: cooperative, healthy appearing, comfortable, no acute distress, well developed, alert and awake Orientation/consciousness: oriented to person, oriented to place, oriented to time and patient oriented x3 HENMT Head: Yes normal to inspection, Yes No palpable skull fracture present and Yes normocephalic Eyes General: appearance normal, both eyes and all related structures Neck Neck: Yes normal visual inspection, Yes full ROM, Yes no lymphadenopathy, Yes no meningeal signs, Yes trachea midline, Yes supple, No anterior neck swelling and No tender Chest Chest palpation & inspection: normal inspection of the chest and normal palpation of entire chest wall Resp Effort & Inspection: normal respiratory effort and able to speak in complete sentences Auscultation: clear to auscultation bilaterally Cardio Jugular venous distension: no JVD Heart sounds: S1 normal heart sound present and S2 normal heart sound present GI Inspection: Yes normal to inspection Palpation (GI): Soft to palpation, not firm, nontender, no guarding and not rigid General: Yes no CVA tenderness Back/Spine/Pelvis Back: no CVA tenderness and No back tenderness Skin General skin exam: no rashes or lesions noted, elasticity normal and turgor normal Neuro General: oriented to person, oriented to place, oriented to time, patient oriented x3, gait normal, tone normal, moves all extremities, Normal light touch and pain sensation, no meningeal signs and no focal motor deficits Extrem General: Yes normal to inspection and Yes full ROM Psych Appearance: grossly normal, well kempt and not disheveled Course Course Course Narrative: RME: 22 yold male presents to the ED for URI SYmptoms. Patient states family member are sick. SARS ordered 6:15pm: Patient COVID positive. Patient history of asthma O2 sat normal per request an albuterol pump. Medical Decision Making Medical Decision Making MDM Narrative: 22 yold male with pmh of asthma presents to the ED for URI symptoms. patietn is poistive covid. patient denies chest pain or shortness of breath. patient request albuterol inhaler to help with cough. patient safe for discharge. patient explained worrisome signs. Differential Diagnosis Differential Diagnoses: The differential diagnosis associated with the presentation includes (RSV, covid, and influenza) Admission/Observation Consideration of admission/observation: Escalation of care including admission/observation considered Lab Data MDM Lab Attestation statement: I reviewed the patient's lab results. Labs: Lab Results 04/26/23 Range/Units 16:25 Influenza Type A (PCR) NEGATIVE (Negative) Influenza Type B (PCR) NEGATIVE (Negative) RSV RNA Qual (PCR) NEGATIVE (Negative) SARS-CoV-2 RNA (RT-PCR) POSITIVE A (Negative) External Record Review External record reviewed: Other (Prior visits) Prescription Management I considered prescription management with: Other (albuterol) Chronic Conditions Patient?s care impacted by: Other (asthma) Discharge Plan Discharge Clinical Impression: COVID-19 Patient Disposition: Home, Self-Care Instructions: COVID-19 (Coronavirus Disease 2019) (ED) Additional Instructions: Recommend self-isolation. Return to the ED immediately for any chest pain, shortness of breath, weakness, dizziness, leg swelling, calf pain, coughing up blood, or any other concerning symptoms. Please follow-up with primary care provider Prescriptions: New albuterol sulfate 90 mcg/actuation HFA aerosol inhaler 2 puff inhalation Q4-6H PRN (Reason: shortness of breath or wheezing) Qty: 8.5 0RF No Action dicyclomine 20 mg tablet 20 mg PO QID PRN (Reason: abdominal pain) Qty: 20 0RF prednisone 20 mg tablet 60 mg PO DAILY Qty: 12 0RF omeprazole 20 mg capsule,delayed release(DR/EC) 20 mg PO DAILY Qty: 14 0RF ondansetron HCl [Zofran] 4 mg tablet 4 mg PO Q8H PRN (Reason: nausea and vomiting) Qty: 14 0RF hydrocortisone acetate [Anusol-HC] 25 mg suppository 25 mg ID BID Qty: 12 0RF polyethylene glycol 3350 [Miralax] 17 gram/dose powder 17 g PO DAILY Qty: 510 0RF naproxen 500 mg tablet 500 mg PO BID PRN (Reason: pain) 7 Days Qty: 14 0RF prednisone 20 mg tablet 40 mg PO DAILY 5 Days Qty: 10 0RF Stand Alone Forms: Work/School Release Interventions: ED Discharge Assessment Last Done: 04/26/23 18:37 Discharge Date/Time: 04/26/23 18:39 Print Language: Cameroonian
[2023-04-26 17:13] LABS: Influenza A PCR NEGATIVE (Negative); Influenza B PCR NEGATIVE (Negative); Resp Syncy Virus RNA Qual PCR NEGATIVE (Negative); SARS COV2 PCR INHOUSE POSITIVE (Negative)
== END 2023-04-26 18:39 | disposition home or self-care (01) ==
PROVIDERS: Physician Assistant; Emergency Provider Student in an Organized Health Care Education/Training Program
DX: U07.1 COVID-19 (principal); M54.50 Low back pain, unspecified; R51.9 Headache, unspecified; M79.10 Myalgia, unspecified site
CPT/HCPCS: 0241U; 99282; 99283

== ENCOUNTER 2023-06-15 18:36 | Emergency (ER) | payer OTHER, SELFPAY ==
[2023-06-15 19:06] VITALS: BP 163/88; PULSE 89; RESP 18; TEMP 37.4; O2SAT 100; BMI 41.1
--- NOTE | 2023-06-15 19:06 | ED.GENADULT ---
HPI - General Adult General Chief complaint: General Medical Stated complaint: high bp. 140/90? Time Seen by Provider: 06/15/23 20:19 Source: patient Mode of arrival: ambulatory Limitations: no limitations History of Present Illness HPI narrative: 22-year-old male who presents emergency department for evaluation of elevated blood pressures. The patient states that he was at work and he developed a headache. Pain was a pressure in the frontal area of his head which was [id number] intensity. Patient states that he gets similar headaches 3 to 4 times a week and usually takes Advil or coffee with relief with the headache. Patient went to see the nurse at work and she took his blood pressure and it was elevated at 140/90. She did give him something for his headache. His blood pressure was 158/104 and 156/97. He was concerned that he had high blood pressure so he came to the emergency department for evaluation. He denied headache, chest pain, nausea, vomiting, weakness Related Data Previous Rx's Medication Instructions Recorded dicyclomine 20 mg tablet 20 mg PO QID PRN abdominal pain 03/24/20 #20 tabs prednisone 20 mg tablet 60 mg (3 x 20 mg) PO DAILY #12 tabs 08/28/20 omeprazole 20 mg capsule,delayed 20 mg PO DAILY gerd #14 caps 03/11/21 release ondansetron HCl 4 mg tablet 4 mg PO Q8H PRN nausea and 03/11/21 (Zofran) vomiting #14 tabs hydrocortisone acetate 25 mg 25 mg MS BID #12 ea 11/17/21 rectal suppository (Anusol-HC) polyethylene glycol 3350 17 17 g PO DAILY #510 grams 11/17/21 gram/dose oral powder (Miralax) naproxen 500 mg tablet 500 mg PO BID PRN pain 7 days #14 03/01/22 tabs prednisone 20 mg tablet 40 mg (2 x 20 mg) PO DAILY 5 days 03/01/22 #10 tabs albuterol sulfate 90 mcg/actuation 2 puff inhalation Q4-6H PRN 04/26/23 aerosol inhaler shortness of breath or wheezing #8.5 grams Allergies Allergy/AdvReac Type Severity Reaction Status Date / Time No Known Allergies Allergy Verified 06/15/23 19:06 [No Known Allergies*] Review of Systems Review of Systems: Yes all other systems are reviewed and are negative PMFSH Past Medical History PMFSH Narrative: Social history: He denies tobacco use. He occasionally drinks alcohol. He denies drug use Medical History Asthma Social History Social History Alcohol intake: current Alcohol intake frequency: holidays/special occasions only Patient Tobacco Use Status: Never used Tobacco Advance Directives: No Advance Directives Information Provided: No Physical Exam ED Vital Signs: Vital Signs - 24 hr 06/15/23 19:06 06/15/23 19:29 Temperature 99.3 F Pulse Rate 89 94 Respiratory Rate 18 16 Blood Pressure 163/88 H 151/88 H Pulse Oximetry 100 99 Oxygen Delivery Method Room Air Room Air BMI result Body Mass Index 41.1 Vital signs did reveal elevated blood pressures of 163/88 and 155/88 Exam: General: Awake, alert in no distress Head: Normocephalic, atraumatic EENT: PERRL, Lids normal, sclera normal, conjunctiva normal, nose normal , ears normal, throat without erythema or exudates Neck: Supple, no adenopathy Lung: breath sounds symmetric, no wheezing, rales or rhonchi Chest: symmetric movement, nontender Heart: regular rate and rhythm, normal S1, S2 no murmurs or rubs Abdomen: soft, non-tender, nondistended, normal bowel sounds Back: no vertebral tenderness, no CVAT Extremities: no deformities, moves all extremities symmetrically Neuro: Awake, alert, oriented, normal speech, cranial nerves intact, moves all extremities symmetrically Psych: Pleasant, cooperative Course Course Course Narrative: This is a rapid medical exam: Additional HPI, ROS, PE not included below will be deferred to primary provider. Patient is a 22-year-old male presenting to the ED stating that his blood pressure at work was elevated but the nurse did not tell him the numbers, was checking BP due to headache. States he then went to [facility] and checked it again, was 148/90. States headache has since resolved and described it as mild. Denies any blurred or double vision. Denies chest pain. BP 163/88 in triage. Plan: EKG Medical Decision Making Medical Decision Making [facility] Narrative: 22-year-old male with no significant past medical history who presents emergency department for evaluation of elevated blood pressures. Patient did have a headache at work but these are consistent with his usual headaches, he had his blood pressure checked and was told that he had elevated blood pressure. He then went to [facility] and checked his blood pressure twice and they were elevated so he came to the emergency department for evaluation. Patient has been relatively asymptomatic. Blood pressures here were elevated. His exam was unremarkable. Differential diagnosis: ?Includes but is not limited to primary hypertension, secondary hypertension, stress, anxiety Course: 20:47 I discussed the diagnosis and management of essential hypertension with the patient. Patient was advised to get a wrist blood pressure cuff and check his blood pressure 3 times a week for the next 3 weeks. He was advised to try lifestyle modification including exercise, weight loss and cutting salt out of his diet. You will need to follow-up with a primary care provider to determine if he needs further testing or management for hypertension. Chronic Conditions Patient?s care impacted by: Other (Obesity with a BMI of 41.4 kg per m2) Discharge Plan Discharge Clinical Impression: Elevated blood pressure reading Patient Disposition: Home, Self-Care Additional Instructions: At this time I do not think that your high blood pressure caused her headache but headache may have caused her to have high blood pressure Your blood pressure readings were elevated. Buy a wrist blood pressure cuff and check your blood pressure on Tuesday, Tuesday and Tuesday mornings for the next 2-3 weeks. Write these blood pressures down and do not worry about your blood pressures. You will need to follow-up with the primary care provider in review these blood pressures with him to determine if you need to be on blood pressure medications. The 1st treatment for high blood pressure is lifestyle modification. You need to exercise for 30 minutes 5 times a week, lose at least 5-10 lb in weight and cut salt out of your diet. Follow-up with a primary care doctor to help you determined if you require blood pressure medications if you can not modify your lifestyle. Please return to the emergency department if your symptoms get worse or if you develop any symptoms that are concerning to you. Try calling the following numbers to see if you can get a primary care provider to help you with your medical problems. [facility] PCP referral line [facility] Adult primary care and family medicine [facility] Prescriptions: No Action dicyclomine 20 mg tablet 20 mg PO QID PRN (Reason: abdominal pain) Qty: 20 0RF prednisone 20 mg tablet 60 mg PO DAILY Qty: 12 0RF omeprazole 20 mg capsule,delayed release(DR/EC) 20 mg PO DAILY Qty: 14 0RF ondansetron HCl [Zofran] 4 mg tablet 4 mg PO Q8H PRN (Reason: nausea and vomiting) Qty: 14 0RF hydrocortisone acetate [Anusol-HC] 25 mg suppository 25 mg MS BID Qty: 12 0RF polyethylene glycol 3350 [Miralax] 17 gram/dose powder 17 g PO DAILY Qty: 510 0RF naproxen 500 mg tablet 500 mg PO BID PRN (Reason: pain) 7 Days Qty: 14 0RF prednisone 20 mg tablet 40 mg PO DAILY 5 Days Qty: 10 0RF albuterol sulfate 90 mcg/actuation HFA aerosol inhaler 2 puff inhalation Q4-6H PRN (Reason: shortness of breath or wheezing) Qty: 8.5 0RF
--- NOTE | 2023-06-15 19:10 | ECG_ITS ---
Test Reason : HIGH BP Blood Pressure : / mmHG Vent. Rate : 081 BPM Atrial Rate : 081 BPM P-R Int : 184 ms QRS Dur : 088 ms QT Int : 376 ms P-R-T Axes : 058 059 043 degrees QTc Int : 436 ms Artifact in tracing Normal sinus rhythm Normal ECG When compared with ECG of 09-AUG-2020 11:50, No significant change was found Referred By: Yen Ren Electronically Signed By:AKSHAT RAMIREZ
[2023-06-15 19:29] VITALS: BP 151/88; PULSE 94; RESP 16; O2SAT 99
[2023-06-15 20:48] VITALS: BP 138/90; PULSE 78
== END 2023-06-15 20:51 | disposition home or self-care (01) ==
PROVIDERS: Emergency Provider Emergency Medicine Emergency Medical Services
DX: R03.0 Elevated blood-pressure reading, without diagnosis of hypertension (principal); J45.909 Unspecified asthma, uncomplicated
CPT/HCPCS: 93005; 99283

== ENCOUNTER → 2023-06-15 19:10 | Outpatient (BNV) | payer SELFPAY | PROVIDERS: Emergency Provider Emergency Medicine Emergency Medical Services; Visit Provider Internal Medicine | DX: R03.0 Elevated blood-pressure reading, without diagnosis of hypertension (principal) | CPT/HCPCS: 93010 ==

== ENCOUNTER 2023-07-25 22:06 | Emergency (ER) | payer OTHER, SELFPAY ==
--- NOTE | ~2023-07-25 | CT_ITS ---
EXAMINATION: CT ABDOMEN AND PELVIS WITH CONTRAST CLINICAL INFORMATION: Left lower quadrant abdominal pain. COMPARISON: 03/11/2021. TECHNIQUE: Multidetector volumetric images were obtained from the superior aspect of the liver through the pubic symphysis following administration 85 mL of Omnipaque 350 intravenous contrast. Sagittal and coronal reformatted images were obtained on the technologist's workstation. Oral contrast: No This CT examination was performed using dose optimization techniques as appropriate, variously including the following: *Automated exposure control *Adjustment of mA and/or kV according to patient size (this includes techniques or standardized protocols for targeted exams where dose is matched to indication/reason for exam; i.e. extremities or head) *Use of iterative reconstruction technique DLP: 1050 mGy-cm FINDINGS: LOCALIZER IMAGES: Large body habitus with pannus projecting over the lower abdominal wall. Normal bowel gas pattern. LUNG BASES: No pulmonary consolidation or pleural effusion. HEPATOBILIARY: Mild hepatomegaly. Otherwise, liver is unremarkable. Gallbladder has a normal appearance. No dilated bile ducts. PANCREAS: No edema, pancreatic ductal dilatation or mass. SPLEEN: 13.9 cm maximum dimension (compared to 13.6 cm on 03/11/2021). No focal splenic lesion. ADRENAL GLANDS: Normal. KIDNEYS AND URETERS: Kidneys have normal size and cortical thickness. No perinephric fluid collection, urolithiasis or hydroureteronephrosis. 0.6 cm simple cyst of the posterior interpolar region of the right kidney. No renal imaging follow-up recommended. BLADDER: Normal. BOWEL AND PERITONEUM: Stomach and small bowel are unremarkable. No dilated loops. The appendix is normal. No overt colonic wall thickening or mesenteric fat stranding. No free fluid or pneumoperitoneum. ABDOMINAL WALL: Unremarkable. VASCULATURE: Abdominal aorta is normal in caliber and its branches are widely patent. Inferior vena cava is normal. LYMPH NODES: No pathologic sized lymph nodes in the abdomen or pelvis. No inguinal lymphadenopathy. PELVIC VISCERA: Normal. MUSCULOSKELETAL: Normal. No acute or suspicious osseous abnormality. Left sacral bone island is present. CT/CT abdomen pelvis w IV con IMPRESSION: * The patient has a large body habitus and there is chronic hepatosplenomegaly. * No acute imaging abnormalities in the abdomen or pelvis compared to 03/11/2021. * No evidence of inflammatory change or obstruction along the gastrointestinal tract.
[2023-07-25 22:17] VITALS: BP 137/85; PULSE 97; RESP 14; TEMP 38.2; O2SAT 99; BMI 40.5
[2023-07-25 22:46] LABS: Basophils Percent Auto 0.1 % (0-2); Eosinophils Absolute Auto 0.1 X10*3/uL (0.0-0.4); Eosinophils Percent Auto 0.6 % (0-4); Hematocrit 46.2 % (42.0-52.0); Hemoglobin 15.7 g/dl (14.0-18.0); Imm Gran Abs Auto 0.03 X10*3/uL (0.00-0.03); Imm Gran Pct Auto 0.3 % (0.0-0.4); Lymphocytes Absolute Auto 0.4 X10*3/uL (1.2-4.9); Lymphocytes Percent Auto 3.4 % (20-40); MANUAL DIFF FLAG SCAN; Mean Corpuscular Hemoglobin 28.6 pg (27.0-33.0); Mean Corpuscular Volume 84.3 fL (80.0-98.0); Mean Platelet Volume 11.9 fL (9.4-12.4); Monocytes Absolute Auto 0.4 X10*3/uL (0.1-1.2); Monocytes Percent Auto 3.9 % (2-11); Neutrophils Absolute Auto 9.6 x10*3/uL (2.0-8.3); Neutrophils Percent Auto 91.7 % (45-73); Platelet Count 176 X10*3/uL (160-400); Red Blood Count 5.48 X10*6/uL (4.60-5.80); Red Cell Distribution Width 12.6 % (11.0-16.0); SCAN SMEAR FLAG 1; White Blood Count 10.5 X10*3/uL (4.8-10.8)
[2023-07-25 23:01] LABS: Alanine Aminotransferase 26 U/L (0-40); Albumin Level 4.7 g/dL (3.5-5.0); Alkaline Phosphatase 70 U/L (39-117); Anion Gap 13 (12-20); Aspartate Amino Transferase 20 U/L (5-37); Bilirubin Total 1.2 mg/dL (0.0-1.0); Blood Urea Nitrogen 15 mg/dL (9-16); Calcium 9.6 mg/dL (8.4-10.2); Carbon Dioxide 27 mmol/L (22-29); Chloride 105 mmol/L (96-108); Creatinine Clr Calc Pharmacy 146.8; Estimated Glomerular Filt Rate > 60; Glucose Random 125 mg/dL (60-115); Lipase 16 U/L (8-78); Potassium 4.3 mmol/L (3.3-5.1); Sodium 141 mmol/L (135-145); Total Protein 7.9 g/dL (6.5-8.0)
[2023-07-25 23:08] LABS: COVID-19 Test Negative (Negative); IDNOW Serial# 08D9AD1C; IDNOW Serial# 152EDE1D; Influenza A Negative (Negative); Influenza B2 Negative (Negative)
[2023-07-25 23:09] LABS: SLIDE REVIEW VERIFIED
[2023-07-26 06:15] VITALS: BP 140/71; PULSE 100; RESP 15; TEMP 36.9; O2SAT 97
--- NOTE | 2023-07-26 06:42 | ED_ITS ---
HPI - General Adult General Chief complaint: Abdominal Pain Stated complaint: N/V abd pain Time Seen by Provider: 07/26/23 06:38 Source: patient Mode of arrival: ambulatory Limitations: no limitations History of Present Illness HPI narrative: Patient is a 22 year old assigned male at with no reported medical history presenting to the emergency department today with left sided abdominal pain, nausea, vomiting, and diarrhea. Patient states that 3 days ago he began to have left sided abdominal pain and then last night he began to have nausea, vomiting, and diarrhea. Patient denies any dizziness, lightheadedness, fever, chills, blurry vision, double vision, loss of vision, chest pain, difficulty breathing, shortness of breath, back pain, night sweats, pain with urination, increased urinary frequency, increased urinary urgency, blood in his urine or stool, syncope or a near syncopal episode, recent trauma or falls, bowel incontinence, bladder incontinence, bowel retention, bladder retention, or any other complaints at this time. Onset (ago): day(s) (3) Location: abdomen and left Radiation: non-radiation Severity: mild Severity scale (1-10): 4 Quality: aching and dull Pain Consistency: constant Relieving factors: none Exacerbating factors: none Associated symptoms: nausea/vomiting Treatments prior to arrival: none Related Data Previous Rx's ?Medication ?Instructions ?Recorded dicyclomine 20 mg tablet 20 mg PO QID PRN abdominal pain 03/24/20 #20 tabs prednisone 20 mg tablet 60 mg (3 x 20 mg) PO DAILY #12 tabs 08/28/20 omeprazole 20 mg capsule,delayed 20 mg PO DAILY gerd #14 caps 03/11/21 release ondansetron HCl 4 mg tablet 4 mg PO Q8H PRN nausea and 03/11/21 (Zofran) vomiting #14 tabs hydrocortisone acetate 25 mg 25 mg AK BID #12 ea 11/17/21 rectal suppository (Anusol-HC) polyethylene glycol 3350 17 17 g PO DAILY #510 grams 11/17/21 gram/dose oral powder (Miralax) naproxen 500 mg tablet 500 mg PO BID PRN pain 7 days #14 03/01/22 tabs prednisone 20 mg tablet 40 mg (2 x 20 mg) PO DAILY 5 days 03/01/22 #10 tabs albuterol sulfate 90 mcg/actuation 2 puff inhalation Q4-6H PRN 04/26/23 aerosol inhaler shortness of breath or wheezing #8.5 grams Allergies Allergy/AdvReac Type Severity Reaction Status Date / Time No Known Allergies Allergy Verified 07/25/23 22:21 [No Known Allergies*] Review of Systems 2 Constitutional: Constitutional: Reports no additional constitutional complaints, Denies chills, Denies fever(s) and Denies night sweats Eyes: Eyes: Reports no additional eye complaints, Denies blurry vision, Denies change in vision, Denies diplopia, Denies eye discharge, Denies loss of vision and Denies eye pain ENT: Denies dizziness Cardiovascular: Cardiovascular: Reports no additional cardiovascular complaints, Denies chest pain, Denies lightheadedness, Denies Loss of Consciousness and Denies dyspnea Respiratory: Respiratory: Reports no additional respiratory complaints and Denies dyspnea Gastrointestinal: Gastrointestinal: Reports no additional gastrointestinal complaints, Reports abdominal pain, Denies melena, Denies hematochezia, Denies change in bowel habits, Denies change in stool character, Reports nausea and Reports vomiting Genitourinary: Genitourinary: Reports no additional male genitourinary complaints, Denies hematuria, Denies oliguria, Denies difficulty urinating, Denies dysuria, Denies urinary frequency, Denies urinary hesitancy, Denies urinary incontinence and Denies urinary urgency Musculoskeletal: Musculoskeletal: Reports no additional musculoskeletal complaints, Denies numbness and Denies tingling Neurologic: Denies dizziness, Denies loss of vision, Denies numbness and Denies tingling Psychiatric: Psychiatric: Reports no additional psychiatric complaints Endocrine: Endocrine: Reports no additional endocrine complaints Hematologic/Lymphatic: Hematologic/Lymphatic: Reports no additional hematologic/lymphatic complaints Allergic/Immunologic: Allergic/Immunologic: Reports no additional allergic/immunologic complaints [facility] Past Medical History Attestation statement: The following information was validated with the patient. Source: old records reviewed and nursing notes reviewed Medical History Asthma Social History Social History Alcohol intake: current Alcohol intake frequency: holidays/special occasions only Patient Tobacco Use Status: Never used Tobacco Smoked in Last 30 Days: No Use of substances other than those prescribed or required for medical reasons: No Advance Directives: No Advance Directives Information Provided: No Physical Exam ED Vital Signs: Vital Signs - 24 hr 07/25/23 22:17 07/26/23 06:15 07/26/23 07:38 Temperature 100.8 F H 98.5 F 98.4 F Pulse Rate 97 100 83 Respiratory Rate 14 15 14 Blood Pressure 137/85 140/71 H 128/71 Pulse Oximetry 99 97 96 Oxygen Delivery Method Room Air Room Air Room Air BMI result Body Mass Index 40.5 Const General: cooperative, no acute distress, alert and awake Nutritional Appearance: well nourished Orientation/consciousness: patient oriented x3 Limitations: no limitations HENMT Head: Yes normal to inspection and Yes atraumatic Ears: hearing grossly normal bilaterally and external ears normal General nose exam: Normal external nose present, no nasal discharge noted and no epistaxis Face and sinus: Yes normal facial exam, No abrasion and No laceration Mouth: Normal oral and palatal mucosa present, no drooling and no muffled voice Eyes General: appearance normal, both eyes and all related structures Periorbital: periorbital findings normal Eyelids: Yes eyelids normal Conjunctivae: conjunctivae normal Pupils: Equal, round and reactive pupils present EOM: EOMs intact bilaterally Neck Neck: Yes normal visual inspection, Yes full ROM and Yes no lymphadenopathy Chest Chest palpation & inspection: normal inspection of the chest Resp Effort & Inspection: normal respiratory effort and able to speak in complete sentences GI Inspection: Yes normal to inspection Palpation (GI): Soft to palpation, not firm, Tenderness to palpation present (GI) in the LLQ and in the LUQ, no guarding and not rigid Neuro General: patient oriented x3 and moves all extremities Cranial nerves: Yes Equal, round and reactive pupils present Cognition (Neuro): normal cognition Motor exam (neuro): 5/5 motor strength present throughout Sensory Exam: Normal double simultaneous stimulation for sensation Coordination: [id number] test normal Extrem General: Yes normal to inspection, Yes full ROM and Yes capillary refill normal Psych Appearance: grossly normal Mental Status: mental status grossly normal Affect: normal affect Attitude: cooperative Thought process: Normal thought process present Thought content: Normal thought content present Insight: Good insight present (Psych) Medications Administered Discontinued Medications Generic Name Dose Route Start Last Admin Trade Name Freq PRN Reason Stop Dose Admin Sodium Chloride 1,000 mls @ 999 mls/hr 07/26/23 06:45 07/26/23 07:23 Ns IV 07/26/23 07:45 999 mls/hr .Q1H1M THIERNO Administration Iohexol 100 ml 07/26/23 08:15 07/26/23 08:16 Iohexol 350 Mg/Ml 100 Ml Infus..Btl IV 07/26/23 08:16 100 ml ONCE ONE Administration Ondansetron HCl 4 mg 07/26/23 06:44 07/26/23 07:23 Ondansetron Hcl 4 Mg/2 Ml Vial IVPUSH 07/26/23 06:45 4 mg ONCE ONE Administration Medical Decision Making Medical Decision Making [facility] Narrative: Patient is a 22 year old assigned male at with no reported medical history presenting to the emergency department today with abdominal pain, nausea, vomiting, and diarrhea. Patient's physical exam was as noted in the physical exam portion of this note. Patient's blood work was unremarkable. Patient's abdomen/pelvis CT showed no acute process. I explained my physical exam findings as well as all test results to the patient. I answered all questions asked by the patient. I stressed the importance of the patient taking his medication as prescribed. I stressed the importance of the patient following up with his primary care provider. I stressed the importance of the patient returning to the emergency department immediately if his symptoms were to worsen or if he were to develop any dizziness, shortness of breath, difficulty breathing, chest pain, blurry vision, loss of vision, nausea, vomiting, abdominal pain, fever, chills, back pain, or any other complaints. Patient verbalized agreement and understanding with this treatment plan and discharge. Differential Diagnosis Differential Diagnoses: The differential diagnosis associated with the presentation includes Diverticulitis Abdominal pain Nausea Vomiting Gastroenteritis Admission/Observation Consideration of admission/observation: Escalation of care including admission/observation considered Patient would have been admitted to the hospital had his work up had any findings where hospital admission was appropriate and his clinical presentation warranted hospital admission. Lab Data [facility] Lab Attestation statement: I reviewed the patient's lab results. My interpretation of these results are in the MDM Rationale portion of this note. 07/25/23 22:38 07/25/23 22:38 Labs: Lab Results 07/25/23 07/26/23 Range/Units 22:38 09:01 WBC 10.5 (4.8-10.8) X10*3/uL RBC 5.48 (4.60-5.80) X10*6/uL Hgb 15.7 (14.0-18.0) g/dl Hct 46.2 (42.0-52.0) % MCV 84.3 (80.0-98.0) fL MCH 28.6 (27.0-33.0) pg MCHC 34.0 (31.0-36.0) g/dl RDW 12.6 (11.0-16.0) % Plt Count 176 (160-400) X10*3/uL MPV 11.9 (9.4-12.4) fL Immature Gran % (Auto) 0.3 (0.0-0.4) % Neut % (Auto) 91.7 H (45-73) % Lymph % (Auto) 3.4 L (20-40) % [place] % (Auto) 3.9 (2-11) % Eos % (Auto) 0.6 (0-4) % Baso % (Auto) 0.1 (0-2) % Lymph # (Auto) 0.4 L (1.2-4.9) X10*3/uL [place] # (Auto) 0.4 (0.1-1.2) X10*3/uL Eos # (Auto) 0.1 (0.0-0.4) X10*3/uL Baso # (Auto) 0.0 (0.0-0.2) X10*3/uL Abs Immat Gran (auto) 0.03 (0.00-0.03) X10*3/uL Absolute Neuts (auto) 9.6 H (2.0-8.3) x10*3/uL Absolute Nucleated RBC 0.000 (0.0-0.012) X10*3/uL Nucleated RBC % (auto) 0.0 (0.0-0.2) /100WBC Smear Tech's Comments VERIFIED Sodium 141 (135-145) mmol/L Potassium 4.3 (3.3-5.1) mmol/L Chloride 105 (96-108) mmol/L Carbon Dioxide 27 (22-29) mmol/L Anion Gap 13 (12-20) BUN 15 (9-16) mg/dL Creatinine 0.95 (0.5-1.4) mg/dL Estim Creat Clear Calc 146.8 Estimated GFR > 60 Random Glucose 125 H (60-115) mg/dL Calcium 9.6 (8.4-10.2) mg/dL Total Bilirubin 1.2 H (0.0-1.0) mg/dL AST 20 (5-37) U/L ALT 26 (0-40) U/L Alkaline Phosphatase 70 (39-117) U/L Total Protein 7.9 (6.5-8.0) g/dL Albumin 4.7 (3.5-5.0) g/dL Lipase 16 (8-78) U/L Urine Color Yellow Urine Appearance Clear Urine pH 6.0 (5.0-9.0) Ur Specific [place] >= 1.030 H (1.005-1.025) Urine Protein Negative (Neg-Trace) mg/dL Urine Glucose (UA) Negative (Negative) mg/dL Urine Ketones Negative (Negative) mg/dL Urine Blood Negative (Negative) Urine Nitrite Negative (Negative) Ur Leukocyte Esterase Negative (Negative) COVID-19 (MARIE) Negative (Negative) COVID-19 Clin Com See Note Influenza Type A (JAMES) Negative (Negative) Influenza Type B (JAMES) Negative (Negative) Influenza A & B Note See Note Independent Interpretation I performed an independent interpretation of an: CT Scan Interpretation: My interpretation is in agreement with the radiologist's impression of these imaging studies. - EXAMINATION: CT ABDOMEN AND PELVIS WITH CONTRAST CLINICAL INFORMATION: Left lower quadrant abdominal pain. COMPARISON: 03/11/2021. TECHNIQUE: Multidetector volumetric images were obtained from the superior aspect of the liver through the pubic symphysis following administration 85 mL of Omnipaque 350 intravenous contrast. Sagittal and coronal reformatted images were obtained on the technologist's workstation. Oral contrast: No This CT examination was performed using dose optimization techniques as appropriate, variously including the following: *Automated exposure control *Adjustment of mA and/or kV according to patient size (this includes techniques or standardized protocols for targeted exams where dose is matched to indication/reason for exam; i.e. extremities or head) *Use of iterative reconstruction technique DLP: 1050 mGy-cm FINDINGS: LOCALIZER IMAGES: Large body habitus with pannus projecting over the lower abdominal wall. Normal bowel gas pattern. LUNG BASES: No pulmonary consolidation or pleural effusion. HEPATOBILIARY: Mild hepatomegaly. Otherwise, liver is unremarkable. Gallbladder has a normal appearance. No dilated bile ducts. PANCREAS: No edema, pancreatic ductal dilatation or mass. SPLEEN: 13.9 cm maximum dimension (compared to 13.6 cm on 03/11/2021). No focal splenic lesion. ADRENAL GLANDS: Normal. KIDNEYS AND URETERS: Kidneys have normal size and cortical thickness. No perinephric fluid collection, urolithiasis or hydroureteronephrosis. 0.6 cm simple cyst of the posterior interpolar region of the right kidney. No renal imaging follow-up recommended. BLADDER: Normal. BOWEL AND PERITONEUM: Stomach and small bowel are unremarkable. No dilated loops. The appendix is normal. No overt colonic wall thickening or mesenteric fat stranding. No free fluid or pneumoperitoneum. ABDOMINAL WALL: Unremarkable. VASCULATURE: Abdominal aorta is normal in caliber and its branches are widely patent. Inferior vena cava is normal. LYMPH NODES: No pathologic sized lymph nodes in the abdomen or pelvis. No inguinal lymphadenopathy. PELVIC VISCERA: Normal. MUSCULOSKELETAL: Normal. No acute or suspicious osseous abnormality. Left sacral bone island is present. CT/CT abdomen pelvis w IV con IMPRESSION: * The patient has a large body habitus and there is chronic hepatosplenomegaly. * No acute imaging abnormalities in the abdomen or pelvis compared to 03/11/2021. * No evidence of inflammatory change or obstruction along the gastrointestinal tract. Dictated By: Samir Leyva MD Signed By: Electronically signed by Samir Leyva MD 07/26/23 0919 Radiology Impression Discussion of test interpretation with radiology: I have reviewed the radiologist's reading. Discharge Plan Discharge Clinical Impression: Gastroenteritis Patient Disposition: Home, Self-Care Instructions: Gastroenteritis (DC) Additional Instructions: Follow up with your primary care provider. Return to the emergency department immediately if your symptoms worsen or if you develop any dizziness, shortness of breath, difficulty breathing, chest pain, blurry vision, loss of vision, nausea, vomiting, abdominal pain, fever, chills, back pain, or any other complaints. Prescriptions: No Action dicyclomine 20 mg tablet 20 mg PO QID PRN (Reason: abdominal pain) Qty: 20 0RF prednisone 20 mg tablet 60 mg PO DAILY Qty: 12 0RF omeprazole 20 mg capsule,delayed release(DR/EC) 20 mg PO DAILY Qty: 14 0RF ondansetron HCl [Zofran] 4 mg tablet 4 mg PO Q8H PRN (Reason: nausea and vomiting) Qty: 14 0RF hydrocortisone acetate [Anusol-HC] 25 mg suppository 25 mg AK BID Qty: 12 0RF polyethylene glycol 3350 [Miralax] 17 gram/dose powder 17 g PO DAILY Qty: 510 0RF naproxen 500 mg tablet 500 mg PO BID PRN (Reason: pain) 7 Days Qty: 14 0RF prednisone 20 mg tablet 40 mg PO DAILY 5 Days Qty: 10 0RF albuterol sulfate 90 mcg/actuation HFA aerosol inhaler 2 puff inhalation Q4-6H PRN (Reason: shortness of breath or wheezing) Qty: 8.5 0RF Referrals: [facility] [place] [Provider Group] (Call to establish and follow up with a primary care provider. If you already have a primary care provider, please follow up with them.) [facility] [place] Primary CareJacqui [Provider Group] [facility] [place] Primary CareMaribel [Provider Group] Stand Alone Forms: Work/School Release Print Language: Welsh
[2023-07-26] MEDS: ondansetron HCL 4 MG/2 ML VIAL IVPUSH (07:23)
[2023-07-26] MEDS: 0.9 % Sodium Chloride 1,000 ML 999 ML IV (07:23)
[2023-07-26 07:38] VITALS: BP 128/71; PULSE 83; RESP 14; TEMP 36.9; O2SAT 96
[2023-07-26] MEDS: iohexoL 350 MG/ML 100 ML INFUS..BTL IV (08:16)
[2023-07-26 09:09] LABS: Appearance Urine Clear; Color Urine Yellow; Glucose Urine UA Negative (Negative); Leukocyte Esterase Urine Negative (Negative); Nitrite Urine Negative (Negative); Specific Gravity - Urine >= 1.030 (1.005-1.025); Urine Blood Negative (Negative); Urine Ketones Negative (Negative); Urine Protein Negative (Neg-Trace)
[2023-07-26 10:11] VITALS: BP 129/74; PULSE 81; RESP 18; O2SAT 98
[2023-07-26 10:28] VITALS: BP 129/74; PULSE 81; RESP 18; TEMP 36.6; O2SAT 98
== END 2023-07-26 10:29 | disposition home or self-care (01) ==
PROVIDERS: Physician Assistant Medical; Emergency Provider Emergency Medicine
DX: K52.9 Noninfective gastroenteritis and colitis, unspecified (principal); R10.32 Left lower quadrant pain; R11.2 Nausea with vomiting, unspecified
CPT/HCPCS: 74177; 80053; 81003; 83690; 85025; 87502; 87635; 96374; 99284; J2405; Q9967